=== PATIENT | male | born 1995 | race Hispanic/Latino ===

== ENCOUNTER → 2023-04-03 | Emergency (ER) | payer BC ==
[~2023-04-03] MED LIST: ACETAMINOPHEN 325 MG TABLET ONE; AZITHROMYCIN 250 MG TAB ONE; CEFTRIAXONE 1000 MG/VIAL ONE; HYDROCODONE/CHLORPHEN 5 ML/OSYR ONE; IBUPROFEN 400 MG TAB ONE; LIDOCAINE 1% MPF 5 ML VIAL ONE; OSELTAMIVIR 75 MG CAP PO ONE
[2023-04-03 09:03] LABS: SARS-CoV-2 Antigen Rapid Res Negative (Negative)
--- NOTE | 2023-04-03 09:31 | EDPHYS ---
Physician Documentation [facility] Name: Thomas Hughes Age: 27 yrs Sex: Male : 1995 Arrival Date: 04/03/2023 Time: 08:20 Bed 19 Private MD: ESTELITA Physician Alan Patel HPI: 04/03 09:24 This 27 yrs old Male presents to ER via Ambulatory with complaints of Flu dilcia Symptoms. 09:24 fever, cough , body aches since sunday. The patient or guardian reports cough, flu dilcia symptoms, arthralgias, low-grade fever, myalgias. Onset: The symptoms/episode began/occurred 2 day(s) ago. Severity of symptoms: At their worst the symptoms were moderate, in the emergency department the symptoms are unchanged. Modifying factors: The symptoms are alleviated by cool environment, the symptoms are aggravated by nothing. The patient reports fever, that was measured at 102 degrees Fahrenheit. Modifying factors: there are no obvious modifying factors. Associated signs and symptoms: Pertinent positives: fever, rhinorrhea, sore throat, vomiting. Historical: - Allergies: 08:32 No Known Allergies; ll1 - PMHx: 08:32 None; ll1 - PSHx: 08:32 wrist SX; ll1 - Immunization history:: Adult Immunizations up to date. - Social history:: Smoking status: Patient denies any tobacco usage or history of. - Family history:: not pertinent. ROS: 09:24 Eyes: Negative for injury, pain, redness, and discharge, ENT: Negative for injury, dilcia pain, and discharge, Neck: Negative for injury, pain, and swelling, Abdomen/GI: Negative for abdominal pain, nausea, vomiting, diarrhea, and constipation, Back: Negative for injury and pain, : Negative for injury, bleeding, discharge, and swelling, MS/Extremity: Negative for injury and deformity, Skin: Negative for injury, rash, and discoloration, Neuro: Negative for headache, weakness, numbness, tingling, and seizure, Psych: Negative for depression, anxiety, suicide ideation, homicidal ideation, and hallucinations, Allergy/Immunology: Negative for hives, rash, and allergies, Endocrine: Negative for neck swelling, polydipsia, polyuria, polyphagia, and marked weight changes, Hematologic/Lymphatic: Negative for swollen nodes, abnormal bleeding, and unusual bruising, 09:24 Constitutional: Positive for body aches, chills, fatigue, fever, malaise, 09:24 Respiratory: Positive for cough, "sounds productive", Exam: 09:24 Head/Face: Normocephalic, atraumatic. Eyes: Pupils equal round and reactive to light, dilcia extra-ocular motions intact. Lids and lashes normal. Conjunctiva and sclera are non-icteric and not injected. Cornea within normal limits. Periorbital areas with no swelling, redness, or edema. ENT: Nares patent. No nasal discharge, no septal abnormalities noted. Tympanic membranes are normal and external auditory canals are clear. Oropharynx with no redness, swelling, or masses, exudates, or evidence of obstruction, uvula midline. Mucous membranes moist. Neck: Trachea midline, no thyromegaly or masses palpated, and no cervical lymphadenopathy. Supple, full range of motion without nuchal rigidity, or vertebral point tenderness. No Meningismus. Chest/axilla: Normal chest wall appearance and motion. Nontender with no deformity. No lesions are appreciated. Abdomen/GI: Soft, non-tender, with normal bowel sounds. No distension or tympany. No guarding or rebound. No evidence of tenderness throughout. Back: No spinal tenderness. No costovertebral tenderness. Full range of motion. Male : Normal genitalia with no discharge or lesions. Skin: Warm, dry with normal turgor. Normal color with no rashes, no lesions, and no evidence of cellulitis. MS/ Extremity: Pulses equal, no cyanosis. Neurovascular intact. Full, normal range of motion. Neuro: Awake and alert, GCS 15, oriented to person, place, time, and situation. Cranial nerves II-XII grossly intact. Motor strength 5/5 in all extremities. Sensory grossly intact. Cerebellar exam normal. Normal gait. Psych: Awake, alert, with orientation to person, place and time. Behavior, mood, and affect are within normal limits. 09:24 Constitutional: The patient appears febrile, 09:24 Cardiovascular: Rate: tachycardic, actual rate is 108 bpm, Rhythm: regular, Pulses: no pulse deficits are appreciated, Heart sounds: normal, Edema: is not appreciated, Vital Signs: 08:32 BP 144 / 89; Pulse 114; Resp 18; Temp 102.8(O); Pulse Ox 95% on R/A; Weight 92.99 kg; ll1 Height 6 ft. 0 in. ; Pain 7/10; 09:12 BP 120 / 69; Pulse 108; Resp 14 S; Pulse Ox 92% on R/A; kc6 09:45 BP 130 / 86; Pulse 106; Resp 19 S; Temp 101; Pulse Ox 95% on R/A; kc6 08:32 Body Mass Index 27.80 (92.99 kg, 182.88 cm) ll1 08:32 Pain Scale: Adult ll1 MDM: 08:26 Patient medically screened. [facility] 09:28 Differential diagnosis: viral Infection, bacterial infection, URI, bronchitis, dilcia pneumonia. Differential Diagnosis sepsis, flu, Bronchitis Influenza Upper Respiratory Infection Pharyngitis Pneumonia. Data reviewed: vital signs, nurses notes, lab test result(s). Consideration of Admission/Observation Escalation of care including admission/observation considered. I considered the following discharge prescriptions or medication management in the emergency department Medications were administered in the Emergency Department. See MAR. Test considered but Not performed:. Historians other than the Patient: pt well informed. Care significantly affected by the following chronic conditions: none. Counseling: I had a detailed discussion with the patient and/or guardian regarding the historical points, exam findings, and any diagnostic results supporting the discharge/admit diagnosis, the need for outpatient follow up, for definitive care, a family practitioner. 02 08:26 Order name: Strep [facility] 04/03 08:26 Order name: Flu; Complete Time: 09:22 [facility] 04/03 08:26 Order name: SARS RAPID; Complete Time: 09:22 [facility] 04/03 09:05 Order name: Throat Culture EDCA 02 09:35 Order name: Chest Pa And Lat (2 Views) XRAY [facility] 04/03 09:23 Order name: PO challenge; Complete Time: 09:25 [facility] Administered Medications: 09:03 Drug: Acetaminophen PO 650 mg PO once Route: PO; kc6 09:45 Follow up: Response: No adverse reaction; Temperature is decreased kc6 09:29 Drug: Ibuprofen PO 800 mg PO once Route: PO; kc6 10:02 Follow up: Response: No adverse reaction me1 09:29 Drug: Oseltamivir PO 75 mg PO once Route: PO; kc6 10:02 Follow up: Response: No adverse reaction me1 09:29 Drug: AZITHromycin PO 500 mg PO once Route: PO; kc6 10:02 Follow up: Response: No adverse reaction me1 09:45 Drug: Tussionex Pennkinetic ER PO Suspension 5 ml PO once Route: PO; kc6 10:02 Follow up: Response: No adverse reaction me1 09:45 Drug: Rocephin (cefTRIAXone) IM 1 grams IM once Route: IM; Site: left deltoid; kc6 10:02 Follow up: Response: No adverse reaction me1 Disposition Summary: 04/03/23 09:30 Discharge Ordered Notes: Location: Home [facility] Problem: new [facility] Symptoms: have improved [facility] Condition: Stable [facility] Diagnosis - Fever, unspecified [facility] - Acute upper respiratory infection, unspecified [facility] - Influenza due to identified novel influenza A virus with other respiratory [facility] manifestations Followup: [facility] - With: Private Physician - When: 2 - 3 days - Reason: Recheck today's complaints, Continuance of care, Re-evaluation by your physician Discharge Instructions: - Discharge Summary Sheet [facility] - Fever, Adult [facility] - Influenza, Adult dilcia - Upper Respiratory Infection, Adult [facility] - Cool Mist Vaporizer [facility] - Upper Respiratory Infection, Adult, Owem-ee-Tnli dilcia - Influenza, Adult, Knvk-dz-Glpt dilcia - Cough, Adult, Krgt-hs-Nvfj [facility] - Cough, Adult [facility] Forms: - Medication Reconciliation Form [facility] - Thank You Letter [facility] - Antibiotic Education [facility] - Prescription Opioid Use [facility] - Patient Portal Instructions [facility] - Leadership Thank You Letter [facility] Prescriptions: - Tamiflu 75 mg Oral capsule - take 1 tablet ORAL route every 12 hours for 5 days; 10 tablet; Refills: 0, [facility] Product Selection Permitted - Guaifenesin AC 10-100 mg/5 mL Oral liquid - take 7.5 milliliter ORAL route every 6 hours As needed; 180 milliliter; [facility] Refills: 0, Product Selection Permitted - Zithromax 500 mg Oral tablet - take 1 tablet ORAL route once daily for 5 days; 5 tablet; Refills: 0, Product [facility] Selection Permitted Signatures: Dispatcher [employer] Alan Hughes MD MD cha Lewis, Lynsay RN RN ll1 Syeda Luna RN RN kc6 Jeniffer Nagel RN me1
--- NOTE | 2023-04-03 09:31 | ER ---
Nurse's Notes [facility] Name: Thomas Hughes Age: 27 yrs Sex: Male : 1995 Arrival Date: 04/03/2023 Time: 08:20 Bed 19 Private MD: Diagnosis: Fever, unspecified;Acute upper respiratory infection, unspecified;Influenza due to identified novel influenza A virus with other respiratory manifestations Presentation: 04/03 08:32 Chief complaint: Patient states: Cough, congestion, N/V/D, [place], body aches with fever ll1 since Sunday. Coronavirus screen: Client denies travel out of the [place] in the last 14 days. congestion, cough unrelated to allergies, fatigue, fever, headache, muscle pain, nausea, runny nose, shortness of breath, Client presents with at least one sign or symptom that may indicate coronavirus-19. Standard/surgical mask placed on the client. Ebola Screen: Patient denies travel to an Ebola-affected area in the 21 days before illness onset. Initial Sepsis Screen: Does the patient meet any 2 criteria? No. Patient's initial sepsis screen is negative. Does the patient have a suspected source of infection? Yes: Productive cough/pneumonia. Risk Assessment: Do you want to hurt yourself or someone else? Patient reports no desire to harm self or others. Onset of symptoms was April 01, 2023. 08:32 Method Of Arrival: Ambulatory ll1 08:32 Acuity: ROMAINE 3 ll1 Triage Assessment: 08:36 General: Appears uncomfortable, ill, Behavior is calm, cooperative, appropriate for ll1 age. Pain: Complains of pain in head Quality of pain is described as aching. EENT: Reports nasal discharge that is watery. Neuro: Reports headache. Respiratory: Reports shortness of breath cough that is. GI: Reports diarrhea, gaseousness, nausea, vomiting. Musculoskeletal: Reports pain in body aches. Historical: - Allergies: 08:32 No Known Allergies; ll1 - PMHx: 08:32 None; ll1 - PSHx: 08:32 wrist SX; ll1 - Immunization history:: Adult Immunizations up to date. - Social history:: Smoking status: Patient denies any tobacco usage or history of. - Family history:: not pertinent. Screenin:11 [facility] ED Fall Risk Assessment (Adult) History of falling in the last 3 months, kc6 including since admission No falls in past 3 months (0 pts) Confusion or Disorientation No (0 pts) Intoxicated or Sedated No (0 pts) Impaired Gait No (0 pts) Mobility Assist Device Used No (0 pt) Altered Elimination No (0 pt) Score/Fall Risk Level 0 - 2 = Low Risk. Abuse screen: Denies threats or abuse. Denies injuries from another. Nutritional screening: No deficits noted. Tuberculosis screening: No symptoms or risk factors identified. Assessment: 09:11 General: Appears in no apparent distress. comfortable, well groomed, well developed, kc6 Behavior is calm, cooperative, appropriate for age, Reports chills for fever for feeling ill for. Pain: Denies pain. Neuro: Level of Consciousness is awake, alert, obeys commands, Oriented to person, place, time, situation, Appropriate for age Reports headache. Cardiovascular: Capillary refill < 3 seconds. Respiratory: Reports cough that is Airway is patent Trachea midline Respiratory effort is even, unlabored, Respiratory pattern is regular, symmetrical. GI: Abdomen is flat, non-distended, Bowel sounds present X 4 quads. Abd is soft and non tender X 4 quads. Reports diarrhea, nausea, vomiting, Patient currently denies abdominal pain. : No signs and/or symptoms were reported regarding the genitourinary system. EENT: Reports nasal congestion. Derm: No signs and/or symptoms reported regarding the dermatologic system. Skin is intact, is healthy with good turgor, Skin is pink, warm \T\ dry. Musculoskeletal: No signs and/or symptoms reported regarding the musculoskeletal system. Circulation, motion, and sensation intact. Capillary refill < 3 seconds, Range of motion: intact in all extremities. 09:45 Reassessment: d/c pending chest xray results. pt to xray via wheelchair at this time. kc6 Vital Signs: 08:32 BP 144 / 89; Pulse 114; Resp 18; Temp 102.8(O); Pulse Ox 95% on R/A; Weight 92.99 kg; ll1 Height 6 ft. 0 in. ; Pain 7/10; 09:12 BP 120 / 69; Pulse 108; Resp 14 S; Pulse Ox 92% on R/A; kc6 09:45 BP 130 / 86; Pulse 106; Resp 19 S; Temp 101; Pulse Ox 95% on R/A; kc6 08:32 Body Mass Index 27.80 (92.99 kg, 182.88 cm) ll1 08:32 Pain Scale: Adult ll1 ED Course: 08:24 Patient arrived in ED. mr 08:26 Alan Patel MD is Attending Physician. [facility] 08:32 Arm band placed on Patient placed in an exam room, on a stretcher. ll1 08:36 Triage completed. ll1 08:37 Syeda Luna RN is Primary Nurse. kc6 09:11 Patient has correct armband on for positive identification. Bed in low position. Call kc6 light in reach. Side rails up X2. Client placed on continuous cardiac and pulse oximetry monitoring. NIBP monitoring applied. 09:11 Patient maintains SpO2 saturation greater than 95% on room air. kc6 09:56 Chest Pa And Lat (2 Views) XRAY In Process Unspecified. EDMS 10:00 Report given to Jeniffer Nagel RN. 6 10:32 No provider procedures requiring assistance completed. Patient did not have IV access me1 during this emergency room visit. 10:33 Provided Education on: POC. Verbalized understanding. . me1 Administered Medications: 09:03 Drug: Acetaminophen PO 650 mg PO once Route: PO; kc6 09:45 Follow up: Response: No adverse reaction; Temperature is decreased kc6 09:29 Drug: Ibuprofen PO 800 mg PO once Route: PO; kc6 10:02 Follow up: Response: No adverse reaction me1 09:29 Drug: Oseltamivir PO 75 mg PO once Route: PO; kc6 10:02 Follow up: Response: No adverse reaction me1 09:29 Drug: AZITHromycin PO 500 mg PO once Route: PO; kc6 10:02 Follow up: Response: No adverse reaction me1 09:45 Drug: Tussionex Pennkinetic ER PO Suspension 5 ml PO once Route: PO; kc6 10:02 Follow up: Response: No adverse reaction me1 09:45 Drug: Rocephin (cefTRIAXone) IM 1 grams IM once Route: IM; Site: left deltoid; kc6 10:02 Follow up: Response: No adverse reaction me1 Medication: 10:32 VIS not applicable for this client. me1 Outcome: 09:30 Discharge ordered by . dilcia 10:33 Discharged to home ambulatory, me1 10:33 Condition: stable 10:33 Discharge instructions given to patient, Instructed on discharge instructions, follow up and referral plans. Demonstrated understanding of instructions, follow-up care, medications, Prescriptions given X 3, 10:33 Patient left the ED. me1 Signatures: Dispatcher [employer] EDAlan Lynn MD MD cha Rivera, Eunice, Reg Reg mr Loly Rodarte RN RN ll1 Syeda Luna RN RN 6 Jeniffer Nagel RN RN me1 Corrections: (The following items were deleted from the chart) 08:39 08:32 BP 144 / 89; Pulse 114bpm; Resp 18bpm; Pulse Ox 95% RA; Temp 102.8F Oral; Pain ll1 09/04, Adult; ll1
--- NOTE | 2023-04-03 10:18 | RAD REPORT ---
EXAM DESCRIPTION: RAD - Chest Pa And Lat (2 Views) - 04/03/2023 9:55 am CLINICAL HISTORY: COUGH COMPARISON: No comparisons TECHNIQUE: PA and lateral views of the chest were obtained. FINDINGS: The lungs are clear. Heart size is normal and central vasculature is within normal limits. No pleural effusion or pneumothorax seen. No acute bony finding noted. IMPRESSION: No acute cardiopulmonary process.
[2023-04-04 13:39] VITALS: BP 130/86; TEMP 101; O2SAT 95
== END ==
LOC: ER 08:20
DX: J10.1 Influenza due to other identified influenza virus with other respiratory manifestations (principal); Z11.52 Encounter for screening for COVID-19
CPT/HCPCS: 87070; 36415; 87081; 87804 ×2; 71046; 87811; J2001; J0696